=== PATIENT | female | born 1995 | race Caucasian/White ===

== ENCOUNTER → 2017-06-05 | Outpatient (CLI) | payer BC, MEDICAID ==
--- NOTE | 2017-06-05 13:47 | RADIOLOGY REPORT (SQ) ---
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 TECHNIQUE: Multiplanar multisequence imaging performed without contrast including axial, sagittal an d coronal T2, axial T1, sagittal inversion recovery. LIMITATIONS: None. FINDINGS: BLADDER AND URETHRA: No focal bladder wall thickening or nodularity. Smooth mucosa. The urethra has smooth contour with no focal asymmetry. No focal lesions. PELVIC SOFT TISSUES: Normal. No masses. 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 There are two endocervical canal, and 2 endometrial canals, best shown on coronal T2 images 12-16. Normal endometrial thickness. RIGHT OVARY: Right ovary 2.2 x 1.4 x 1 cm in size, best shown on coronal T2 series 9, image 15. LEFT OVARY: Left ovary 2 x 1.6 x 1 cm in size, best shown on coronal T2 series 9, image 15. FREE FLUID: None. PELVIC SKELETAL STRUCTURES: No abnormal marrow signal. EXTRA PELVIS SOFT TISSUES: No masses. Both kidneys are normal in size, 10 cm in length. No renal hy dronephrosis. OTHER: No other significant finding. IMPRESSION: Small uterus with didelphys. Small ovaries identified. Normal size kidneys in the right and left renal fossa. TECHNICAL DOCUMENTATION: JOB ID: [id number] [employer]- All Rights Reserved
== END ==
LOC: RAD 10:42
PROVIDERS: ATTEND Specialist
DX: Q51.0 Agenesis and aplasia of uterus (principal)
CPT/HCPCS: 72195

== ENCOUNTER 2017-08-24 21:49 | Emergency (ER) | payer BC, MEDICAID ==
[2017-08-24 23:05] LABS: ANION GAP 13 (5-19); BLOOD UREA NITROGEN 15 mg/dL (7-20); CALCIUM 9.9 mg/dL (8.4-10.2); CARBON DIOXIDE 29 mmol/L (22-30); CHLORIDE 102 mmol/L (98-107); GLUCOSE 102 mg/dL (75-110); POTASSIUM 3.8 mmol/L (3.6-5.0); SODIUM 143.5 mmol/L (137-145)
--- NOTE | 2017-08-25 00:08 | ER Document Report ---
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 Patient reports that intermittently she will feel like her heart is beating quickly and skipped beats. She notes that with these episodes she sometimes feels somewhat short of breath or feels like she cannot get a deep breath. Nothing seems to improve or worsen the symptoms. She denies a history of similar symptoms in the past. She denies any history of DVT or pulmonary embolus. She has not seen a primary care doctor regarding today's concerns. She denies any distinct chest pain. No hemoptysis or unilateral leg swelling. TRAVEL OUTSIDE OF THE [place] IN LAST 30 DAYS: No - Related Data Allergies/Adverse Reactions: No Known Allergies Allergy (Verified 08/24/17 21:50) Past Medical History - General Information source: Patient - Social History Smoking Status: Never Smoker Frequency of alcohol use: None Drug Abuse: None Lives with: Family Family History: Reviewed & Not Pertinent Patient has suicidal ideation: No Patient has homicidal ideation: No Endocrine Medical History: Reports: Hx Hypothyroidism Renal/ Medical History: Denies: Hx Peritoneal Dialysis Review of Systems - Review of Systems Notes: Constitutional: Negative for fever. HENT: Negative for sore throat. Eyes: Negative for visual changes. Cardiovascular: Negative for chest pain. Positive for palpitations Respiratory: Positive for shortness of breath. Gastrointestinal: Negative for abdominal pain, vomiting or diarrhea. Genitourinary: Negative for dysuria. Musculoskeletal: Negative for back pain. Skin: Negative for rash. Neurological: Negative for headaches, weakness or numbness. 10 point ROS negative except as marked above and in HPI. Physical Exam - Vital signs Vitals: Temp Pulse Resp BP Pulse Ox 97.7 F 68 18 117/84 100 08/24/17 21:59 08/24/17 21:59 08/24/17 21:59 08/24/17 21:59 08/24/17 21:59 Interpretation: Normal Notes: PHYSICAL EXAMINATION: GENERAL: Well-appearing, well-nourished and in no acute distress. HEAD: Atraumatic, normocephalic. EYES: Pupils equal round and reactive to light, extraocular movements intact, sclera anicteric, conjunctiva are normal. ENT: nares patent, oropharynx clear without exudates. Moist mucous membranes. NECK: Normal range of motion, supple without lymphadenopathy LUNGS: Breath sounds clear to auscultation bilaterally and equal. No wheezes rales or rhonchi. HEART: Regular rate and rhythm without murmurs ABDOMEN: Soft, nontender, normoactive bowel sounds. No guarding, no rebound. No masses appreciated. EXTREMITIES: Normal range of motion, no pitting or edema. No cyanosis. NEUROLOGICAL: No focal neurological deficits. Moves all extremities spontaneously and on command. PSYCH: Normal mood, normal affect. SKIN: Warm, Dry, normal turgor, no rashes or lesions noted. Course - Re-evaluation Re-evalutation: 08/25/17 00:07 Patient presents with intermittent palpitations with associated intermittent shortness of breath. Patient also reports that she feels it is difficult for her to get a deep breath. Vitals are within normal limits at time of assessment. No physical exam findings. EKG unremarkable. Patient does however take estradiol for hormone replacement and given this report I am concerned about the possibility of pulmonary embolus particularly given her report that she is having difficulty getting a deep breath. A d-dimer will be sent. Will also obtain a chest x-ray to evaluate for any evidence of an acute pneumothorax again for which I have overall low clinical suspicion. Basic metabolic panel unremarkable. Patient is not . If all labs are unremarkable plan for outpatient follow-up with cardiology 08/25/17 01:26 Chest x-ray shows no acute infiltrate or pneumothorax. D-dimer is negative. Patient remains asymptomatic. Vitals within normal. At this time will discharge with return precautions and follow-up recommendations. Verbal discharge instructions given a the bedside and opportunity for questions given. Medication warnings reviewed. Patient is in agreement with this plan and has verbalized understanding of return precautions and the need for primary care follow-up in the next 24-72 hours. - Vital Signs Vital signs: Temp Pulse Resp BP Pulse Ox 97.7 F 68 14 96/65 L 100 08/24/17 21:59 08/24/17 21:59 08/25/17 01:12 08/25/17 01:12 08/25/17 01:12 - Laboratory Result Diagrams: 08/24/17 22:30 - Diagnostic Test Radiology reviewed: Image reviewed, Reports reviewed Radiology results interpreted by me: 08/25/17 01:27 Chest x-ray: No acute infiltrate or pneumothorax - EKG Interpretation by Me Additional EKG results interpreted by me: 08/25/17 01:27 Normal sinus rhythm. Rate 67. No ST elevations or depressions. QTC is 423. Discharge - Discharge Clinical Impression: Palpitations, Shortness of breath Condition: Good Disposition: HOME, SELF-CARE Additional Instructions: Please follow-up with your primary care doctor or a automotive repair technician regarding your palpitations. Return if you develop chest pain, shortness of breath, pass out, or have any other symptoms that are worrisome to you. Referrals: NBA ZAVALA, [employer]GER-[employer] [Primary Care Provider] - Follow up as needed MARGARITA DUVALL MD [ACTIVE STAFF] - Follow up in 3-5 days
--- NOTE | 2017-08-25 01:07 | RADIOLOGY REPORT (SQ) ---
EXAM DESCRIPTION: CHEST SINGLE VIEW CLINICAL HISTORY: sob, cp COMPARISON: 07/24/2013 FINDINGS: Single frontal view of the chest. The cardiomediastinal silhouette has normal size and contour. No consolidation, pneumothorax, or pleural effusion. No displaced rib fractures identified. Upper abdominal soft tissues are unremarkable. Leads overlie the chest. IMPRESSION: 1. No acute pulmonary process identified.
[2017-08-25 01:34] VITALS: BP 96/65
--- NOTE | 2017-08-26 12:14 | EKG REPORT ---
SEVERITY:- NORMAL ECG - SINUS RHYTHM : Confirmed by: Camilla Recio MD 26-Aug-2017 12:13:23
== END 2017-08-25 01:43 | disposition home or self-care (01) ==
LOC: ER 21:49
DX: R00.2 Palpitations (principal); R06.02 Shortness of breath
CPT/HCPCS: 36415; 71010; 80048; 84703; 85379; 93005; 93010; 99285